=== PATIENT | male | born 1970 | race Asian ===

== ENCOUNTER 2019-11-29 10:09 | Emergency (ER) | payer BC ==
[~2019-11-29] VITALS: Ht 160 cm; Wt 68.0 kg
[2019-11-29 10:09] VITALS: BP_SYST 165
--- NOTE | 2019-11-29 10:09 | NUR ---
BROUGHT IMMEDIATELY BACK TO BED #8 AND TRIAGED. REPORT GIVEN TO CAREY
--- NOTE | 2019-11-29 10:11 | NUR ---
Patient arrived in the ED for left thumb laceration that happened today while he's cutting down a tree. Denied any chest pain or shortness of breath. Denied any fevers, chills, nausea or vomiting. Patient is alert and oriented x4, respirations even and unlabored, speaking in full sentences, and ambulating with a steady gait. VSS, pain level 6/10. Informed of the approximate wait time. Instructed to notify ED staff for any changes in condition or worsening of symptoms while waiting to be seen by an ED provider. Patient verbalized understanding.
--- NOTE | 2019-11-29 10:17 | NUR ---
ER Dr. Mayers at bedside examining patient.
--- NOTE | 2019-11-29 10:22 | NUR ---
ER Dr. Mayers at bedside doing a laceration repair. Patient tolerated the procedure well.
[2019-11-29] MEDS ORDERED: LIDOCAINE 1% 10 MG/ML, 20 ML MDV INJ ONE (10:30)
--- NOTE | 2019-11-29 10:42 | NUR ---
Patient given written and verbal discharge instructions and verbalizes understanding. ER MD discussed with patient the results and treatment provided. Patient in stable condition. ID arm band removed. No Rx given. Patient educated on pain management and to follow up with PMD. Pain Scale 0/10. Opportunity for questions provided and answered. Medication side effect fact sheet provided.
[2019-11-29] MEDS ORDERED: BACITRACIN ZINC 15 GM TOPICAL OINTMENT TP SCH (10:45)
[2019-11-29 10:47] VITALS: BP_SYST 142
[2019-11-29] MEDS ORDERED: BACITRACIN 1 GM OINT TP ONE (10:49)
== END 2019-11-29 10:42 | disposition home or self-care (01) ==
LOC: SED 10:09
DX: S61.012A Laceration without foreign body of left thumb without damage to nail, initial encounter (principal); I10 Essential (primary) hypertension; W26.0XXA Contact with knife, initial encounter; Y93.89 Activity, other specified; Y92.89 Other specified places as the place of occurrence of the external cause; Y99.8 Other external cause status
CPT/HCPCS: 12001; 99282; J2001